=== PATIENT | female | born 1995 | race Caucasian/White ===

== ENCOUNTER 2017-05-19 17:29 | Emergency (ER) | payer BC ==
[2017-05-19 17:42] VITALS: BP 125/91; PULSE 88; RESP 20; TEMP 98.2; O2SAT 99
--- NOTE | 2017-05-19 17:49 | PD ---
HPI Chief Complaint: Abdominal Pain Time Seen by Provider: 17:50 Travel History International Travel<30 days: No Contact w/Intl Traveler<30days: No Traveled to known affect area: No History of Present Illness HPI patient c/o rlq pain, sharp, 8/10, constant, since 5am, nonradiating and positive for loose stool x 2 only since then,....no alleviating/aggravating factors.....denies fever/n/v/cp/backpain/cough/runny nose all:denies pmhx:denies pshx: denies x t&a PFSH Past Medical History LMP: APPROXC 30 DAYS AGO Social History Tobacco Use: No Allergies-Medications (Allergen,Severity, Reaction): Coded Allergies: No Known Allergies (Unverified , 05/19/17) Reported Meds & Prescriptions Reported Meds & Active Scripts Active Zofran Odt (Ondansetron Odt) 4 Mg Tab 4 Mg SL Q6HR PRN Ultram (Tramadol HCl) 50 Mg Tab 50 Mg PO Q6H PRN Reported [accutane] 1 Tab PO DAILY Review of Systems General / Constitutional: No: Fever Eyes: No: Visual changes HENT: No: Headaches Cardiovascular: No: Chest Pain or Discomfort Respiratory: No: Shortness of Breath Gastrointestinal: Positive: Nausea, Diarrhea, Abdominal Pain Genitourinary: No: Dysuria Musculoskeletal: No: Pain Skin: No Rash Neurologic: No: Weakness Psychiatric: No: Depression Endocrine: No: Polydipsia Hematologic/Lymphatic: No: Easy Bruising Physical Exam Narrative GENERAL: SKIN: Warm and dry. HEAD: Atraumatic. Normocephalic. EYES: Pupils equal and round. No scleral icterus. No injection or drainage. ENT: No nasal bleeding or discharge. Mucous membranes pink and moist. NECK: Trachea midline. No JVD. CARDIOVASCULAR: Regular rate and rhythm. RESPIRATORY: No accessory muscle use. Clear to auscultation. Breath sounds equal bilaterally. GASTROINTESTINAL: Abdomen soft, nondistended. ttp at mcburney's area, neg rovsing's/psoas'/obturator sign MUSCULOSKELETAL: Extremities without clubbing, cyanosis, or edema. No obvious deformities. NEUROLOGICAL: Awake and alert. No obvious cranial nerve deficits. Motor grossly within normal limits. Five out of 5 muscle strength in the arms and legs. Normal speech. PSYCHIATRIC: Appropriate mood and affect; insight and judgment normal. Data Data Last Documented VS Vital Signs Date Time Temp Pulse Resp B/P (MAP) Pulse Ox O2 Delivery O2 Flow Rate FiO2 05/19/17 18:00 97 Room Air 05/19/17 17:42 98.2 88 20 125/91 (102) Orders Orders Urinalysis - C+S If Indicated (05/19/17 17:47) Ed Urine Pregnancytest Poc (05/19/17 17:47) Complete Blood Count With Diff (05/19/17 17:50) Comprehensive Metabolic Panel (05/19/17 17:50) Lipase (05/19/17 17:50) Ct Abd/Pel W Iv Contrast(Rout) (05/19/17 17:50) Iv Access Insert/Monitor (05/19/17 17:50) Ecg Monitoring (05/19/17 17:50) Oximetry (05/19/17 17:50) NPO (05/19/17 17:50) Morphine Inj (Morphine Inj) (05/19/17 18:00) Ondansetron Inj (Zofran Inj) (05/19/17 18:00) Sodium Chlor 0.9% 1000 Ml Inj (Ns 1000 M (05/19/17 17:50) Sodium Chloride 0.9% Flush (Ns Flush) (05/19/17 18:00) Iohexol 350 Inj (Omnipaque 350 Inj) (05/19/17 18:46) Ed Discharge Order (05/19/17 19:31) Labs Laboratory Tests Test 05/19/17 17:45 05/19/17 18:10 Urine Color YELLOW Urine Turbidity CLEAR Urine pH 7.0 Urine Specific Brothers 1.020 Urine Protein NEG mg/dL Urine Glucose (UA) NEG mg/dL Urine Ketones NEG mg/dL Urine Occult Blood SMALL Urine Nitrite NEG Urine Bilirubin NEG Urine Leukocyte Esterase NEG Urine RBC 3-5 /hpf Urine WBC 3-5 /hpf Urine Squamous Epithelial Cells > 8 /hpf Urine Bacteria FEW /hpf Microscopic Urinalysis Comment CULT NOT INDICATED White Blood Count 9.8 TH/MM3 Red Blood Count 5.07 MIL/MM3 Hemoglobin 14.8 GM/DL Hematocrit 45.7 % Mean Corpuscular Volume 90.1 FL Mean Corpuscular Hemoglobin 29.1 PG Mean Corpuscular Hemoglobin Concent 32.3 % Red Cell Distribution Width 12.9 % Platelet Count 233 TH/MM3 Mean Platelet Volume 9.4 FL Neutrophils (%) (Auto) 70.2 % Lymphocytes (%) (Auto) 18.4 % Monocytes (%) (Auto) 8.2 % Eosinophils (%) (Auto) 0.4 % Basophils (%) (Auto) 2.8 % Neutrophils # (Auto) 6.9 TH/MM3 Lymphocytes # (Auto) 1.8 TH/MM3 Monocytes # (Auto) 0.8 TH/MM3 Eosinophils # (Auto) 0.0 TH/MM3 Basophils # (Auto) 0.3 TH/MM3 CBC Comment DIFF FINAL Differential Comment Blood Urea Nitrogen 7 MG/DL Creatinine 0.84 MG/DL Random Glucose 85 MG/DL Total Protein 7.4 GM/DL Albumin 3.8 GM/DL Calcium Level 9.3 MG/DL Alkaline Phosphatase 38 U/L Aspartate Amino Transf (AST/SGOT) 24 U/L Alanine Aminotransferase (ALT/SGPT) 37 U/L Total Bilirubin 0.5 MG/DL Sodium Level 139 MEQ/L Potassium Level 4.1 MEQ/L Chloride Level 105 MEQ/L Carbon Dioxide Level 26.7 MEQ/L Anion Gap 7 MEQ/L Estimat Glomerular Filtration Rate 86 ML/MIN Lipase 134 U/L [facility] Medical Decision Making Medical Screen Exam Complete: Yes Emergency Medical Condition: Yes Medical Record Reviewed: Yes Differential Diagnosis ovarian cyst v appy v ectopic v colitis v divertic Narrative Course ua neg for uti, neg , ct abdomen is neg for colitis/divertic Diagnosis Primary Impression: Ovarian cyst Qualified Codes: N83.201 - Unspecified ovarian cyst, right side Patient Instructions: General Instructions, Ovarian Cyst (ED) Scripts Ondansetron Odt (Zofran Odt) 4 Mg Tab 4 MG SL Q6HR Y for Nausea/Vomiting, #12 TAB 0 Refills Prov: Porfirio Nathan MD 05/19/17 Tramadol (Ultram) 50 Mg Tab 50 MG PO Q6H Y for PAIN, #14 TAB 0 Refills Prov: Porfirio Nathan MD 05/19/17 Disposition: 01 DISCHARGE HOME Condition: Stable Porfirio Nathan MD May 19, 2017 17:49
[2017-05-19] MEDS ORDERED: SODIUM CHLOR 0.9% 1000 ML INJ 1,000 ML IV SCH (17:50)
[2017-05-19 18:00] VITALS: O2SAT 97
[2017-05-19] MEDS ORDERED: ONDANSETRON HCL 4 MG/2 ML VIAL IVP ONE (18:00)
[2017-05-19] MEDS ORDERED: MORPHINE SULFATE 4 MG/ML INJ IV PUSH ONE (18:00)
[2017-05-19] MEDS ORDERED: SODIUM CHLORIDE 0.9% FLUSH 10 ML FLUSH IV FLUSH PRN (18:00)
[2017-05-19 18:11] LABS: BILIRUBIN, URINE NEG (NEG); BLOOD, URINE SMALL (NEG); GLUCOSE,URINE NEG (NEG); KETONE, URINE NEG (NEG); NITRITE,URINE NEG (NEG); URINE LEUKOCYTE ESTERASE NEG (NEG)
[2017-05-19 18:18] LABS: SQUAMOUS EPITHELIAL CELL URINE > 8 /hpf (0-5); URINE COLOR YELLOW (YELLW/STRAW)
[2017-05-19 18:19] LABS: BACTERIA, URINE FEW /hpf
[2017-05-19 18:29] LABS: AUTOMATED NEUTROPHIL # 6.9 TH/MM3 (1.8-7.7); BASOPHIL # 0.3 TH/MM3 (0-0.2); BASOPHIL % 2.8 % (0.0-2.0); EOSINOPHIL % 0.4 % (0.0-4.0); HEMATOCRIT 45.7 % (35.0-46.0); HEMOGLOBIN 14.8 GM/DL (11.6-15.3); LYMPH % 18.4 % (9.0-44.0); LYMPHOCYTE # 1.8 TH/MM3 (1.0-4.8); MEAN CELL VOLUME 90.1 FL (80.0-100.0); MEAN CORPUSCULAR HEMOGLOBIN 29.1 PG (27.0-34.0); MEAN CORPUSCULAR HGB CONC 32.3 % (32.0-36.0); MEAN PLATELET VOLUME 9.4 FL (7.0-11.0); MONO % 8.2 % (0.0-8.0); MONOCYTE # 0.8 TH/MM3 (0-0.9); NEUT % 70.2 % (16.0-70.0); PLATELET COUNT 233 TH/MM3 (150-450); RED BLOOD COUNT 5.07 MIL/MM3 (4.00-5.30); RED CELL DISTRIBUTION WIDTH 12.9 % (11.6-17.2); WHITE BLOOD COUNT 9.8 TH/MM3 (4.0-11.0)
[2017-05-19 18:37] LABS: CHLORIDE 105 MEQ/L (98-107); SODIUM (NA) 139 MEQ/L (136-145)
[2017-05-19 18:40] LABS: CALCIUM 9.3 MG/DL (8.5-10.1)
[2017-05-19 18:41] LABS: ALBUMIN 3.8 GM/DL (3.4-5.0); BICARBONATE 26.7 MEQ/L (21.0-32.0); BLOOD UREA NITROGEN 7 MG/DL (7-18); GLUCOSE,RANDOM 85 MG/DL (74-106); LIPASE 134 U/L (73-393)
[2017-05-19 18:44] LABS: ALT (GPT) 37 U/L (9-42); AST (GOT) 24 U/L (16-38); CREATININE 0.84 MG/DL (0.50-1.00); GLOMERULAR FILTRATION RATE 86 ML/MIN (>89)
[2017-05-19 18:45] LABS: TOTAL BILIRUBIN ADULT 0.5 MG/DL (0.2-1.0); TOTAL PROTEIN 7.4 GM/DL (6.4-8.2)
[2017-05-19 18:46] LABS: ALKALINE PHOSPHATASE 38 U/L (45-117)
[2017-05-19] MEDS ORDERED: IOHEXOL 350 MG/ML 10 ML VIAL (for RAD DIAG) IVCONTRAST ONE (18:46)
--- NOTE | 2017-05-19 18:58 | RADRPT ---
EXAM DATE/TIME: 05/19/2017 18:40 [place] COMPARISON: No previous studies available for comparison. INDICATIONS : Right lower quadrant pain, nausea and diarrhea. IV CONTRAST: 80 cc Omnipaque 350 (iohexol) IV ORAL CONTRAST: No oral contrast ingested. RADIATION DOSE: 5.69 CTDIvol (mGy) MEDICAL HISTORY : None SURGICAL HISTORY : None. ENCOUNTER: Initial ACUITY: 1 day PAIN SCALE: 7/10 LOCATION: Right lower quadrant TECHNIQUE: Volumetric scanning of the abdomen and pelvis was performed. Using automated exposure control and ad justment of the mA and/or kV according to patient size, radiation dose was kept as low as reasonably achievable to obtain optimal diagnostic quality images. DICOM format image data is available electro nically for review and comparison. FINDINGS: LOWER LUNGS: The visualized lower lungs are clear. LIVER: Homogeneous density without lesion. There is no dilation of the biliary tree. No calcified gallston es. SPLEEN: Normal size without lesion. PANCREAS: Within normal limits. KIDNEYS: Normal in size and shape. There is no mass, stone or hydronephrosis. ADRENAL GLANDS: Within normal limits. VASCULAR: There is no aortic aneurysm. BOWEL/MESENTERY: The stomach, small bowel, and colon demonstrate no acute abnormality. There is no free intraperitone al air or fluid. The appendix is not definitively identified, however, no inflammatory process is obs erved to clearly suggest acute appendicitis. ABDOMINAL WALL: Within normal limits. RETROPERITONEUM: There is no lymphadenopathy. BLADDER: No wall thickening or mass. REPRODUCTIVE: Within normal limits. INGUINAL: There is no lymphadenopathy or hernia. MUSCULOSKELETAL: Within normal limits for patient age. CONCLUSION: No acute disease. Landon Rodrigues Jr., MD on May 19, 2017 at 18:53 Board Certified Radiologist. This report was verified electronically.
[2017-05-19] MEDS ORDERED: TRAM50 PO (19:08)
[2017-05-19] MEDS ORDERED: ZOFR4TAB3 SL (19:08)
[2017-05-19] MEDS ORDERED: accutane PO (19:11)
[2017-05-19 19:47] VITALS: BP 125/68; TEMP 98.2
== END 2017-05-19 20:03 | disposition home or self-care (01) ==
LOC: PHED 17:29
DX: N83.201 Unspecified ovarian cyst, right side (principal)
CPT/HCPCS: 74177; 80053; 81001; 83690; 84703; 85025; 96361; 96374; 96375; 99285; J2270; J2405; J7030; Q9967